=== PATIENT | female | born 1935 | race Caucasian/White ===

== ENCOUNTER 2019-11-28 09:44 | Inpatient (IN) | payer MEDICARE, MEDICAID ==
[~2019-11-28] VITALS: Ht 160 cm; Wt 60.3 kg
--- NOTE | 2019-11-28 09:56 | NUR ---
Task RN: Provided bedside report to DAMI Boyce. All questions answered. DAMI Boyce to assume care of pt at this time.
--- NOTE | 2019-11-28 10:03 | NUR ---
PT BIB EMS FROM [place] TO RULE OUT GASTRITIS AND RENAL FAILURE. PTS BUN WAS "3X HIGHER THAN NORMAL" PT COMPAINED OF DIARHEA AND VOMITTING X 2 DAYS. EKG [place]. PTS VITALS ARE STABLE. BLANKET PROVIDED. 2 IVS HAVE BEEN STARTED
[2019-11-28] MEDS ORDERED: SODIUM CHLORIDE 0.9% 1,000ML IVBOLUS ONE (12:00)
--- NOTE | 2019-11-28 12:10 | NUR ---
PT RESTING IN [facility]. IV FLUIDS INFUSING. VSS.
[2019-11-28 12:25] LABS: BASOPHILS # (AUTO) 0.04 x10^3/uL (0-0.1); BASOPHILS % (AUTO) 1 % (0-1); EOSINOPHILS # (AUTO) 0.25 x10^3/uL (0-0.4); EOSINOPHILS % (AUTO) 3 % (1-7); LYMPHOCYTES # (AUTO) 2.08 x10^3/uL (1-3.4); LYMPHOCYTES % (AUTO) 28 % (22-44); MD NO; MEAN CORPUSCULAR HEMOGLOBIN 27.7 pg (27.0-34.8); MEAN CORPUSCULAR HGB CONC 31.5 g/dL (32.4-35.8); MEAN CORPUSCULAR VOLUME 87.8 fL (80-100); MEAN PLATELET VOLUME 8.3 fL (7.4-10.4); MONOCYTES # (AUTO) 0.53 x10^3/uL (0.2-0.8); MONOCYTES % (AUTO) 7 % (2-9); NEUTROPHILS # (AUTO) 4.65 x10^3/uL (1.8-6.8); NEUTROPHILS % (AUTO) 62 % (42-75); PLATELET COUNT 288 x10^3/uL (130-400); RED CELL DISTRIBUTION WIDTH 14.6 % (9.6-15.2)
[2019-11-28 12:37] LABS: ALBUMIN 2.6 g/dL (3.4-5.0); ANION GAP 10 mmol/L (5-15); CALCIUM 8.2 mg/dL (8.5-10.1); CHLORIDE 121 mmol/L (98-107); CREATININE 5.32 mg/dL (0.55-1.02)
--- NOTE | 2019-11-28 12:44 | NUR ---
[facility]. [phone]
[2019-11-28 13:30] LABS: MICROSCOPIC INDICATED
--- NOTE | 2019-11-28 13:46 | NUR ---
PT AMBULATED TO BATHROOM. STANDBY ASSIST
[2019-11-28] MEDS ORDERED: CEFTRIAXONE PMX 1GM/50ML 50 ML IVPB ONE (15:00)
--- NOTE | 2019-11-28 15:03 | NUR ---
PT TOLD ADMITTING MD THAT SHE THOUGHT WE WERE IN [place] AND SHE HAS NO CLUE WHY SHE IS IN THE HOSPITAL AT THIS TIME
[2019-11-28] MEDS ORDERED: SODIUM CHLORIDE 0.45% 1,000 ML IV SCH (16:00)
[2019-11-28 17:59] VITALS: BP 131/69
[2019-11-28] MEDS ORDERED: ONDANSETRON 2MG/ML, 2ML IVPush PRN (18:00)
[2019-11-28] MEDS ORDERED: LABETALOL 5MG/ML, 20ML IVPush PRN (18:00)
[2019-11-28] MEDS ORDERED: GUAIFENESIN/DM 200-20MG, 10ML UDC PO PRN (18:00)
[2019-11-28] MEDS ORDERED: BUTALB/APAP/CAFFEINE 50MG/325MG/40MG PO PRN ×2 (18:00)
[2019-11-28] MEDS ORDERED: hydrALAzine 20 MG/ML, 1ML IVPush PRN (18:00)
[2019-11-28] MEDS ORDERED: ONDANSETRON ODT 4 MG PO PRN (18:00)
[2019-11-28] MEDS: SODIUM CHLORIDE 0.45% 1,000 ML IV SCH (18:24)
[2019-11-28] MEDS: HEPARIN 5,000 UNITS/ML, 1ML SQ SCH (18:24)
[2019-11-28] MEDS: ACETAMINOPHEN 325 MG TABLET PO PRN (19:30)
[2019-11-28] MEDS: BACLOFEN 10 MG TABLET PO PRN (19:30)
[2019-11-28 21:51] LABS: CREATININE,URINE RANDOM 38.5 mg/dL
[2019-11-28] MEDS ORDERED: CEFTRIAXONE PMX 1GM/50ML 50 ML ONE (22:22)
[2019-11-28 23:33] VITALS: BP 93/49
[2019-11-29] MEDS ORDERED: SACC250C4 PO (01:35)
[2019-11-29] MEDS ORDERED: ASCO-96 PO (01:35)
[2019-11-29] MEDS ORDERED: FESO8TAB PO (01:35)
[2019-11-29] MEDS ORDERED: GABA300C PO (01:35)
[2019-11-29] MEDS ORDERED: CHOL10003 PO (01:35)
[2019-11-29] MEDS ORDERED: OMEP-110 PO (01:35)
[2019-11-29] MEDS ORDERED: LIDO700A20 TD (01:35)
[2019-11-29] MEDS ORDERED: LISI-167 PO (01:35)
[2019-11-29] MEDS ORDERED: FURO20TA3 PO (01:35)
[2019-11-29] MEDS ORDERED: FERR324T5 PO (01:35)
[2019-11-29] MEDS ORDERED: SITA100T PO (01:35)
[2019-11-29] MEDS ORDERED: CLOP75TA52 PO (01:35)
[2019-11-29] MEDS ORDERED: DOCU-131 PO (01:35)
[2019-11-29] MEDS ORDERED: POLY17PO5 PO (01:35)
[2019-11-29] MEDS ORDERED: NA P133E2 RC (02:04)
[2019-11-29] MEDS ORDERED: GABA600T7 PO (02:04)
[2019-11-29] MEDS ORDERED: BISA10SU54 PR (02:04)
[2019-11-29] MEDS ORDERED: ATOR20TA37 PO (02:04)
[2019-11-29] MEDS ORDERED: MAGN400O7 PO (02:04)
[2019-11-29] MEDS ORDERED: NICO4GUM5 PO (02:04)
[2019-11-29] MEDS ORDERED: MIRT15TA3 PO (02:04)
[2019-11-29] MEDS ORDERED: UMEC62.5 INH (02:04)
[2019-11-29] MEDS ORDERED: ACET1TAB64 PO (02:04)
[2019-11-29] MEDS ORDERED: INSU100I28 SC (02:04)
[2019-11-29] MEDS ORDERED: NITR0.6T4 SL (02:04)
[2019-11-29] MEDS: HEPARIN 5,000 UNITS/ML, 1ML SQ SCH ×4 (03:09→17:48)
[2019-11-29 03:12] VITALS: BP 125/72
[2019-11-29 04:23] LABS: BASOPHILS # (AUTO) 0.05 x10^3/uL (0-0.1); BASOPHILS % (AUTO) 1 % (0-1); EOSINOPHILS # (AUTO) 0.32 x10^3/uL (0-0.4); EOSINOPHILS % (AUTO) 5 % (1-7); LYMPHOCYTES # (AUTO) 2.26 x10^3/uL (1-3.4); LYMPHOCYTES % (AUTO) 34 % (22-44); MD NO; MEAN CORPUSCULAR HEMOGLOBIN 28.6 pg (27.0-34.8); MEAN CORPUSCULAR HGB CONC 32.5 g/dL (32.4-35.8); MEAN CORPUSCULAR VOLUME 88.1 fL (80-100); MEAN PLATELET VOLUME 8.6 fL (7.4-10.4); MONOCYTES # (AUTO) 0.48 x10^3/uL (0.2-0.8); MONOCYTES % (AUTO) 7 % (2-9); NEUTROPHILS # (AUTO) 3.55 x10^3/uL (1.8-6.8); NEUTROPHILS % (AUTO) 53 % (42-75); PLATELET COUNT 262 x10^3/uL (130-400); RED BLOOD COUNT 2.93 x10^6/uL (3.82-5.3); RED CELL DISTRIBUTION WIDTH 14.5 % (9.6-15.2)
[2019-11-29 04:35] LABS: ALBUMIN 2.4 g/dL (3.4-5.0); ANION GAP 9 mmol/L (5-15); CALCIUM 8.2 mg/dL (8.5-10.1); CHLORIDE 121 mmol/L (98-107); CREATININE 5.05 mg/dL (0.55-1.02); IRON LEVEL 87 mcg/dL (50-170)
[2019-11-29 04:40] LABS: % IRON SATURATION 39 % (20-55); TOTAL IRON BINDING CAPACITY 223 mcg/dL (250-450)
[2019-11-29 05:31] LABS: ALANINE AMINOTRANSFERASE 15 U/L (12-78)
[2019-11-29 05:32] LABS: ALKALINE PHOSPHATASE 118 U/L (45-117); BILIRUBIN,TOTAL 0.2 mg/dL (0.2-1.0); TOTAL PROTEIN 6.3 g/dL (6.4-8.2)
[2019-11-29 07:39] VITALS: BP 113/63
[2019-11-29] MEDS ORDERED: MAGNESIUM SULFATE PMX 2GM/50ML 50 ML IV ONE (09:00)
[2019-11-29] MEDS: SODIUM CHLORIDE 0.45% 1,000 ML IV SCH ×2 (09:25→20:49)
[2019-11-29] MEDS: SENNA/DOCUSATE TABLET PO SCH (09:26)
[2019-11-29] MEDS: ACETAMINOPHEN 325 MG TABLET PO PRN (09:45)
[2019-11-29 14:20] VITALS: BP 160/81
[2019-11-29 15:59] VITALS: BP 125/63
[2019-11-29 20:10] VITALS: BP 125/73
[2019-11-29] MEDS: BACLOFEN 10 MG TABLET PO PRN (20:48)
[2019-11-29] MEDS: MELATONIN 5 MG TABLET PO PRN (20:48)
[2019-11-29] MEDS: MIRTAZAPINE 15 MG TAB.RAPDIS PO SCH (20:48)
[2019-11-29] MEDS: FLORASTOR 250 MG CAPSULE PO SCH (20:48)
[2019-11-29] MEDS: GABAPENTIN 300 MG CAPSULE PO PRN (20:48)
[2019-11-30 01:32] VITALS: BP 129/71
[2019-11-30] MEDS: HEPARIN 5,000 UNITS/ML, 1ML SQ SCH ×3 (02:00→17:49)
[2019-11-30 06:16] LABS: ALBUMIN 2.4 g/dL (3.4-5.0); ANION GAP 9 mmol/L (5-15); CALCIUM 8.4 mg/dL (8.5-10.1); CHLORIDE 120 mmol/L (98-107)
[2019-11-30 06:18] LABS: BASOPHILS # (AUTO) 0.05 x10^3/uL (0-0.1); BASOPHILS % (AUTO) 1 % (0-1); CREATININE 4.22 mg/dL (0.55-1.02); EOSINOPHILS # (AUTO) 0.16 x10^3/uL (0-0.4); EOSINOPHILS % (AUTO) 3 % (1-7); LYMPHOCYTES # (AUTO) 1.63 x10^3/uL (1-3.4); LYMPHOCYTES % (AUTO) 29 % (22-44); MD NO; MEAN CORPUSCULAR HEMOGLOBIN 28.8 pg (27.0-34.8); MEAN CORPUSCULAR HGB CONC 33.1 g/dL (32.4-35.8); MEAN PLATELET VOLUME 8.6 fL (7.4-10.4); MONOCYTES # (AUTO) 0.33 x10^3/uL (0.2-0.8); MONOCYTES % (AUTO) 6 % (2-9); NEUTROPHILS # (AUTO) 3.46 x10^3/uL (1.8-6.8); NEUTROPHILS % (AUTO) 62 % (42-75); PLATELET COUNT 248 x10^3/uL (130-400); RED BLOOD COUNT 2.91 x10^6/uL (3.82-5.3); RED CELL DISTRIBUTION WIDTH 14.6 % (9.6-15.2)
[2019-11-30 07:48] VITALS: BP 119/73
[2019-11-30] MEDS: FERROUS SULFATE 325 MG TABLET PO SCH (08:37)
[2019-11-30] MEDS: CLOPIDOGREL 75 MG TABLET PO SCH (08:37)
[2019-11-30] MEDS: FLORASTOR 250 MG CAPSULE PO SCH ×2 (08:37→20:51)
[2019-11-30] MEDS: CHOLECALCIFEROL 1,000 UNIT TABLET PO SCH (08:37)
[2019-11-30] MEDS: FUROSEMIDE 20 MG TABLET PO SCH (08:38)
[2019-11-30] MEDS: SENNA/DOCUSATE TABLET PO SCH (08:40)
[2019-11-30] MEDS: LISINOPRIL 10 MG TABLET PO SCH (08:41)
[2019-11-30] MEDS: NICOTINE 21 MG/24 HR PATCH.TD24 TD SCH ×2 (08:46→08:47)
[2019-11-30] MEDS: INSULIN GLARGINE 100 UNITS/ML, PEN SQ-INSULIN SCH (09:00)
[2019-11-30] MEDS: LACTATED RINGERS 1,000 ML IV SCH (10:33)
[2019-11-30 13:52] VITALS: BP 123/66
[2019-11-30 19:53] VITALS: BP 118/64
[2019-11-30] MEDS: BACLOFEN 10 MG TABLET PO PRN (20:52)
[2019-11-30] MEDS: GABAPENTIN 300 MG CAPSULE PO PRN (20:52)
[2019-11-30] MEDS: MELATONIN 5 MG TABLET PO PRN (20:52)
[2019-11-30] MEDS: ACETAMINOPHEN 325 MG TABLET PO PRN (20:52)
[2019-11-30] MEDS: MIRTAZAPINE 15 MG TAB.RAPDIS PO SCH (21:00)
[2019-12-01 01:34] VITALS: BP 110/58
[2019-12-01] MEDS: ACETAMINOPHEN 325 MG TABLET PO PRN (05:31)
[2019-12-01] MEDS: BACLOFEN 10 MG TABLET PO PRN (05:31)
[2019-12-01] MEDS: HEPARIN 5,000 UNITS/ML, 1ML SQ SCH ×3 (05:31→21:00)
[2019-12-01 05:49] LABS: CHLORIDE 119 mmol/L (98-107)
[2019-12-01 05:53] LABS: ALBUMIN 2.7 g/dL (3.4-5.0); ANION GAP 9 mmol/L (5-15); CALCIUM 8.9 mg/dL (8.5-10.1); CREATININE 3.89 mg/dL (0.55-1.02)
[2019-12-01 08:50] VITALS: BP 172/60
[2019-12-01] MEDS ORDERED: SULF1TAB23 PO (09:07)
[2019-12-01] MEDS: FLORASTOR 250 MG CAPSULE PO SCH ×2 (09:23→21:00)
[2019-12-01] MEDS: LISINOPRIL 10 MG TABLET PO SCH (09:23)
[2019-12-01] MEDS: CLOPIDOGREL 75 MG TABLET PO SCH (09:24)
[2019-12-01] MEDS: FUROSEMIDE 20 MG TABLET PO SCH (09:24)
[2019-12-01] MEDS: CHOLECALCIFEROL 1,000 UNIT TABLET PO SCH (09:24)
[2019-12-01] MEDS: SENNA/DOCUSATE TABLET PO SCH (09:24)
[2019-12-01] MEDS: INSULIN GLARGINE 100 UNITS/ML, PEN SQ-INSULIN SCH (09:24)
[2019-12-01] MEDS: FERROUS SULFATE 325 MG TABLET PO SCH (09:24)
[2019-12-01] MEDS: NICOTINE 21 MG/24 HR PATCH.TD24 TD SCH (09:37)
[2019-12-01] MEDS: LACTATED RINGERS 1,000 ML IV SCH (10:30)
[2019-12-01 11:10] VITALS: BP 181/75
[2019-12-01 11:52] VITALS: BP 168/80
[2019-12-01 12:54] VITALS: BP 138/83
[2019-12-01 19:32] VITALS: BP 158/70
[2019-12-01] MEDS: SULFAMETH./TRIMETHOPRIM SS 400MG/80MG TABLET PO SCH (21:00)
[2019-12-01] MEDS: MIRTAZAPINE 15 MG TAB.RAPDIS PO SCH (21:00)
[2019-12-02 01:41] VITALS: BP 146/78
[2019-12-02] MEDS: HEPARIN 5,000 UNITS/ML, 1ML SQ SCH ×3 (05:00→20:58)
[2019-12-02 08:44] VITALS: BP 154/87
[2019-12-02] MEDS: FLORASTOR 250 MG CAPSULE PO SCH ×2 (09:00→20:57)
[2019-12-02] MEDS: CLOPIDOGREL 75 MG TABLET PO SCH ×2 (09:00→09:23)
[2019-12-02] MEDS: LISINOPRIL 10 MG TABLET PO SCH ×2 (09:00→10:56)
[2019-12-02] MEDS: FUROSEMIDE 20 MG TABLET PO SCH (09:00)
[2019-12-02] MEDS: SULFAMETH./TRIMETHOPRIM SS 400MG/80MG TABLET PO SCH ×2 (09:00→20:57)
[2019-12-02] MEDS: FERROUS SULFATE 325 MG TABLET PO SCH (09:00)
[2019-12-02] MEDS: CHOLECALCIFEROL 1,000 UNIT TABLET PO SCH (09:00)
[2019-12-02] MEDS: ACETAMINOPHEN 325 MG TABLET PO PRN ×3 (09:19→18:35)
[2019-12-02] MEDS: INSULIN GLARGINE 100 UNITS/ML, PEN SQ-INSULIN SCH (09:30)
[2019-12-02] MEDS: NICOTINE 21 MG/24 HR PATCH.TD24 TD SCH (09:31)
[2019-12-02 09:54] LABS: ANION GAP 9 mmol/L (5-15); CHLORIDE 121 mmol/L (98-107); CREATININE 3.16 mg/dL (0.55-1.02)
[2019-12-02] MEDS: SENNA/DOCUSATE TABLET PO SCH (10:56)
[2019-12-02] MEDS: LACTATED RINGERS 1,000 ML IV SCH (11:01)
[2019-12-02 14:19] LABS: FREE T4 (FREE THYROXINE) 1.03 ng/dL (0.76-1.46)
[2019-12-02 14:20] VITALS: BP 129/63
[2019-12-02 20:45] VITALS: BP 153/73
[2019-12-03 02:28] VITALS: BP 110/69
[2019-12-03] MEDS: ACETAMINOPHEN 325 MG TABLET PO PRN ×3 (02:50→18:41)
[2019-12-03] MEDS: HEPARIN 5,000 UNITS/ML, 1ML SQ SCH ×3 (05:20→20:42)
[2019-12-03 06:05] LABS: BASOPHILS # (AUTO) 0.05 x10^3/uL (0-0.1); BASOPHILS % (AUTO) 1 % (0-1); EOSINOPHILS # (AUTO) 0.32 x10^3/uL (0-0.4); EOSINOPHILS % (AUTO) 3 % (1-7); LYMPHOCYTES # (AUTO) 2.87 x10^3/uL (1-3.4); LYMPHOCYTES % (AUTO) 30 % (22-44); MD NO; MEAN CORPUSCULAR HEMOGLOBIN 28.3 pg (27.0-34.8); MEAN CORPUSCULAR HGB CONC 32.6 g/dL (32.4-35.8); MEAN CORPUSCULAR VOLUME 86.9 fL (80-100); MONOCYTES # (AUTO) 0.72 x10^3/uL (0.2-0.8); MONOCYTES % (AUTO) 7 % (2-9); NEUTROPHILS # (AUTO) 5.77 x10^3/uL (1.8-6.8); NEUTROPHILS % (AUTO) 59 % (42-75); PLATELET COUNT 294 x10^3/uL (130-400); RED BLOOD COUNT 3.47 x10^6/uL (3.82-5.3); RED CELL DISTRIBUTION WIDTH 14.1 % (9.6-15.2)
[2019-12-03 06:12] LABS: ALBUMIN 2.7 g/dL (3.4-5.0); ANION GAP 6 mmol/L (5-15); CALCIUM 8.5 mg/dL (8.5-10.1); CHLORIDE 121 mmol/L (98-107); CREATININE 2.85 mg/dL (0.55-1.02)
[2019-12-03 07:42] VITALS: BP 112/69
[2019-12-03] MEDS ORDERED: PHARMACY MAY ADJ FOR RENAL FX MC PRN (08:00)
[2019-12-03] MEDS: FERROUS SULFATE 325 MG TABLET PO SCH (08:55)
[2019-12-03] MEDS: CEPHALEXIN 500 MG CAPSULE PO SCH ×2 (08:55→20:42)
[2019-12-03] MEDS: FUROSEMIDE 20 MG TABLET PO SCH (08:55)
[2019-12-03] MEDS: FLORASTOR 250 MG CAPSULE PO SCH ×2 (08:55→20:42)
[2019-12-03] MEDS: CLOPIDOGREL 75 MG TABLET PO SCH (08:55)
[2019-12-03] MEDS: NICOTINE 21 MG/24 HR PATCH.TD24 TD SCH (08:56)
[2019-12-03] MEDS: CHOLECALCIFEROL 1,000 UNIT TABLET PO SCH (08:56)
[2019-12-03] MEDS: LISINOPRIL 10 MG TABLET PO SCH (08:56)
[2019-12-03] MEDS: INSULIN GLARGINE 100 UNITS/ML, PEN SQ-INSULIN SCH (08:57)
[2019-12-03] MEDS: SENNA/DOCUSATE TABLET PO SCH (08:59)
[2019-12-03 12:06] VITALS: BP 103/69
[2019-12-03 19:19] VITALS: BP 108/62
[2019-12-04] MEDS: ACETAMINOPHEN 325 MG TABLET PO PRN (01:56)
[2019-12-04 02:00] VITALS: BP 101/60
[2019-12-04] MEDS: LACTATED RINGERS 1,000 ML IV SCH ×2 (03:45→04:00)
[2019-12-04] MEDS: HEPARIN 5,000 UNITS/ML, 1ML SQ SCH ×3 (04:48→20:50)
[2019-12-04 06:48] LABS: BASOPHILS # (AUTO) 0.03 x10^3/uL (0-0.1); BASOPHILS % (AUTO) 0 % (0-1); EOSINOPHILS # (AUTO) 0.39 x10^3/uL (0-0.4); EOSINOPHILS % (AUTO) 4 % (1-7); LYMPHOCYTES # (AUTO) 2.87 x10^3/uL (1-3.4); LYMPHOCYTES % (AUTO) 28 % (22-44); MD NO; MEAN CORPUSCULAR HEMOGLOBIN 28.3 pg (27.0-34.8); MEAN CORPUSCULAR HGB CONC 32.4 g/dL (32.4-35.8); MEAN CORPUSCULAR VOLUME 87.2 fL (80-100); MONOCYTES # (AUTO) 0.72 x10^3/uL (0.2-0.8); MONOCYTES % (AUTO) 7 % (2-9); NEUTROPHILS # (AUTO) 6.24 x10^3/uL (1.8-6.8); NEUTROPHILS % (AUTO) 61 % (42-75); PLATELET COUNT 273 x10^3/uL (130-400); RED BLOOD COUNT 3.31 x10^6/uL (3.82-5.3); RED CELL DISTRIBUTION WIDTH 14.6 % (9.6-15.2)
[2019-12-04 06:53] LABS: ANION GAP 7 mmol/L (5-15); CALCIUM 8.5 mg/dL (8.5-10.1); CHLORIDE 116 mmol/L (98-107); CREATININE 3.02 mg/dL (0.55-1.02)
[2019-12-04 07:53] VITALS: BP 117/65
[2019-12-04] MEDS: SENNA/DOCUSATE TABLET PO SCH (09:00)
[2019-12-04] MEDS ORDERED: LACTATED RINGERS 500 ML IVBOLUS ONE (10:00)
[2019-12-04] MEDS: FLORASTOR 250 MG CAPSULE PO SCH ×2 (11:21→20:50)
[2019-12-04] MEDS: CHOLECALCIFEROL 1,000 UNIT TABLET PO SCH (11:22)
[2019-12-04] MEDS: CLOPIDOGREL 75 MG TABLET PO SCH (11:22)
[2019-12-04] MEDS: NICOTINE 21 MG/24 HR PATCH.TD24 TD SCH (11:22)
[2019-12-04] MEDS: CEPHALEXIN 500 MG CAPSULE PO SCH ×2 (11:22→20:50)
[2019-12-04] MEDS: FERROUS SULFATE 325 MG TABLET PO SCH (11:22)
[2019-12-04] MEDS: INSULIN GLARGINE 100 UNITS/ML, PEN SQ-INSULIN SCH (11:36)
[2019-12-04 15:02] VITALS: BP 121/71
[2019-12-04 18:46] VITALS: BP 158/65
[2019-12-05 01:01] VITALS: BP 133/65
[2019-12-05] MEDS ORDERED: HALOPERIDOL 5 MG/ML ONE (01:41)
[2019-12-05] MEDS ORDERED: HALOPERIDOL 5 MG/ML IM ONE (02:00)
[2019-12-05 04:51] LABS: ANION GAP 7 mmol/L (5-15); CALCIUM 8.8 mg/dL (8.5-10.1); CHLORIDE 120 mmol/L (98-107); CREATININE 2.65 mg/dL (0.55-1.02)
[2019-12-05] MEDS: HEPARIN 5,000 UNITS/ML, 1ML SQ SCH ×3 (05:11→20:27)
[2019-12-05 08:40] VITALS: BP 113/67
[2019-12-05] MEDS: NICOTINE 21 MG/24 HR PATCH.TD24 TD SCH (09:00)
[2019-12-05] MEDS: SENNA/DOCUSATE TABLET PO SCH (09:00)
[2019-12-05] MEDS: CEPHALEXIN 500 MG CAPSULE PO SCH ×2 (09:06→20:27)
[2019-12-05] MEDS: CHOLECALCIFEROL 1,000 UNIT TABLET PO SCH (09:06)
[2019-12-05] MEDS: FLORASTOR 250 MG CAPSULE PO SCH ×2 (09:06→20:27)
[2019-12-05] MEDS: FERROUS SULFATE 325 MG TABLET PO SCH (09:06)
[2019-12-05] MEDS: CLOPIDOGREL 75 MG TABLET PO SCH (09:06)
[2019-12-05] MEDS: SODIUM BICARBONATE 650 MG TABLET PO SCH ×2 (09:06→20:27)
[2019-12-05] MEDS: INSULIN GLARGINE 100 UNITS/ML, PEN SQ-INSULIN SCH (09:07)
[2019-12-05] MEDS ORDERED: SODI650T PO (12:31)
[2019-12-05] MEDS ORDERED: CEPH-376 PO (12:31)
[2019-12-05 16:05] VITALS: BP 125/66
[2019-12-05] MEDS: LACTATED RINGERS 1,000 ML IV SCH (17:36)
[2019-12-05 18:55] VITALS: BP 114/69
[2019-12-06 00:04] VITALS: BP 156/72
[2019-12-06] MEDS: HEPARIN 5,000 UNITS/ML, 1ML SQ SCH (05:15)
[2019-12-06 06:18] LABS: ANION GAP 8 mmol/L (5-15); CALCIUM 8.6 mg/dL (8.5-10.1); CHLORIDE 117 mmol/L (98-107); CREATININE 2.44 mg/dL (0.55-1.02)
[2019-12-06 06:57] VITALS: BP 135/67
[2019-12-06] MEDS: SODIUM BICARBONATE 650 MG TABLET PO SCH (08:43)
[2019-12-06] MEDS: CLOPIDOGREL 75 MG TABLET PO SCH (08:43)
[2019-12-06] MEDS: CEPHALEXIN 500 MG CAPSULE PO SCH (08:43)
[2019-12-06] MEDS: CHOLECALCIFEROL 1,000 UNIT TABLET PO SCH (08:43)
[2019-12-06] MEDS: FERROUS SULFATE 325 MG TABLET PO SCH (08:44)
[2019-12-06] MEDS: SENNA/DOCUSATE TABLET PO SCH (08:44)
[2019-12-06] MEDS: NICOTINE 21 MG/24 HR PATCH.TD24 TD SCH (08:44)
[2019-12-06] MEDS: INSULIN GLARGINE 100 UNITS/ML, PEN SQ-INSULIN SCH (08:44)
== END 2019-12-06 10:00 | DRG 682 ==
LOC: ED 12:08 → EDIP 14:01 → 4WST 17:28
PROVIDERS: ADMIT Family Medicine; ATTEND Internal Medicine
DX: N17.9 Acute kidney failure, unspecified (principal); G93.41 Metabolic encephalopathy; N39.0 Urinary tract infection, site not specified; E87.0 Hyperosmolality and hypernatremia; E87.2 Acidosis; F05 Delirium due to known physiological condition; K52.9 Noninfective gastroenteritis and colitis, unspecified; I12.9 Hypertensive chronic kidney disease with stage 1 through stage 4 chronic kidney disease, or unspecified chronic kidney disease; E87.5 Hyperkalemia; D64.9 Anemia, unspecified; E11.9 Type 2 diabetes mellitus without complications; N18.9 Chronic kidney disease, unspecified; E11.22 Type 2 diabetes mellitus with diabetic chronic kidney disease; J44.9 Chronic obstructive pulmonary disease, unspecified; E88.09 Other disorders of plasma-protein metabolism, not elsewhere classified; B96.20 Unspecified Escherichia coli [E. coli] as the cause of diseases classified elsewhere; E86.0 Dehydration; F02.80 Dementia in other diseases classified elsewhere, unspecified severity, without behavioral disturbance, psychotic disturbance, mood disturbance, and anxiety; F17.210 Nicotine dependence, cigarettes, uncomplicated; Z66 Do not resuscitate; G30.9 Alzheimer's disease, unspecified; I95.9 Hypotension, unspecified; N32.81 Overactive bladder; Z79.02 Long term (current) use of antithrombotics/antiplatelets; Z79.4 Long term (current) use of insulin; Z79.899 Other long term (current) drug therapy; Z90.710 Acquired absence of both cervix and uterus; Z20.828 Contact with and (suspected) exposure to other viral communicable diseases
CPT/HCPCS: 36415; 70551; 76770; 80048; 80069; 81001; 82040; 82140; 82247; 82306; 82570; 82728; 82962; 83540; 83550; 83605; 83735; 83970; 84075; 84155; 84156; 84439; 84443; 84450; 84460; 84481; 84550; 85025; 87040; 87077; 87086; 87186; 87635; 93005; 96365; 96366; 99285; G0378; J0696; J1644; J2405; J0360; J1630; J1815; J3475; J7030; J7120

== ENCOUNTER 2020-06-14 10:54 | Day surgery (SDC) | payer MEDICARE, MEDICAID ==
[~2020-06-14] VITALS: Ht 160 cm; Wt 64.5 kg
[~2020-06-14 10:54] MED LIST: ACET1TAB64 PO; ASCO-96 PO; ATOR20TA37 PO; BISA10SU54 PR; CEPH-376 PO; CHOL10003 PO; CLOP75TA52 PO; DOCU-131 PO; FERR324T5 PO; FESO8TAB PO; FURO20TA3 PO; GABA300C PO; GABA600T7 PO; INSU100I28 SC; LIDO700A20 TD; LISI-167 PO; MAGN400O7 PO; MIRT15TA3 PO; NA P133E2 RC; NICO4GUM5 PO; NITR0.6T4 SL; OMEP-110 PO; POLY17PO5 PO; SACC250C4 PO; SITA100T PO; SODI650T PO; SULF1TAB23 PO; UMEC62.5 INH
[2020-06-14] MEDS ORDERED: CHLORHEXIDINE 15 ML UDC MM STA (11:02)
[2020-06-14] MEDS ORDERED: CHLORHEXIDINE 15 ML UDC ONE (11:11)
[2020-06-14] MEDS ORDERED: FENTANYL PF 250 MCG/5ML ONE (11:12)
[2020-06-14] MEDS ORDERED: ONDANSETRON 2MG/ML, 2ML ONE (11:15)
[2020-06-14] MEDS ORDERED: GLYCOPYRROLATE 0.2MG/1ML, 5ML ONE (11:15)
[2020-06-14] MEDS ORDERED: ROCURONIUM 10MG/ML,5ML ONE (11:15)
[2020-06-14] MEDS ORDERED: NEOSTIGMINE 1 MG/ML, 10ML ONE (11:15)
[2020-06-14] MEDS ORDERED: CEFAZOLIN 1,000 MG ONE (11:15)
[2020-06-14] MEDS ORDERED: DEXAMETHASONE 4 MG/ML, 1ML ONE (11:15)
[2020-06-14] MEDS ORDERED: PROPOFOL 10 MG/ML, 20ML ONE (11:15)
[2020-06-14] MEDS ORDERED: PLEASE ENTER HEIGHT AND WEIGHT MC SCH (11:30)
[2020-06-14] MEDS ORDERED: LACTATED RINGERS 1,000 ML IV SCH (11:30)
[2020-06-14 11:31] VITALS: BP 123/60
[2020-06-14] MEDS ORDERED: ATOR20TA37 PO (11:53)
[2020-06-14] MEDS ORDERED: GABA300C PO (11:53)
[2020-06-14] MEDS ORDERED: POLY17PO5 PO (11:53)
[2020-06-14] MEDS ORDERED: LIDO1ADH68 TD (11:53)
[2020-06-14] MEDS ORDERED: CHOL10003 PO (11:53)
[2020-06-14] MEDS ORDERED: OMEP-110 PO (11:53)
[2020-06-14] MEDS ORDERED: DOCU-131 PO (11:53)
[2020-06-14] MEDS ORDERED: GABA100C PO (11:53)
[2020-06-14] MEDS ORDERED: OXYB5TAB10 PO (11:53)
[2020-06-14] MEDS ORDERED: SULF1TAB24 PO (11:53)
[2020-06-14] MEDS ORDERED: SITA100T PO (11:53)
[2020-06-14] MEDS ORDERED: INSU100V13 SQ (11:53)
[2020-06-14] MEDS ORDERED: AMLO2.5T5 PO (11:53)
[2020-06-14] MEDS ORDERED: CLOP75TA52 PO (11:53)
[2020-06-14] MEDS ORDERED: MIRT-38 PO (11:53)
[2020-06-14] MEDS ORDERED: SUGAMMADEX 200 MG/2 ML IVPush ONE (12:29)
[2020-06-14] MEDS ORDERED: HALOPERIDOL 5 MG/ML IV PRN (12:30)
[2020-06-14] MEDS ORDERED: HYDROmorphone 1 MG/ML, 1ML INJ IVPush PRN (12:30)
[2020-06-14] MEDS ORDERED: LABETALOL 5MG/ML, 20ML IV PRN (12:30)
[2020-06-14] MEDS ORDERED: hydrALAzine 20 MG/ML, 1ML IV PRN (12:30)
[2020-06-14] MEDS ORDERED: FENTANYL PF 100 MCG/2ML IV PRN (12:30)
[2020-06-14] MEDS ORDERED: morphine SULFATE 10 MG/ML, 1ML IVPush PRN (12:30)
[2020-06-14] MEDS ORDERED: PROMETHAZINE 25 MG/ML, 1ML IVPush PRN (12:30)
[2020-06-14] MEDS ORDERED: MEPERIDINE/PF 25MG/0.5ML IVPush PRN (12:30)
[2020-06-14] MEDS ORDERED: OXYcodone 5 MG/5 ML ORAL.SOL UDC PO PRN (12:30)
[2020-06-14] MEDS ORDERED: FLUCONAZOLE 200 MG/100 ML 100 ML IV ONE (13:30)
== END 2020-06-14 17:20 | disposition home or self-care (01) ==
LOC: EDBD → OUT 10:54
PROVIDERS: ATTEND Student in an Organized Health Care Education/Training Program
DX: N20.1 Calculus of ureter (principal); I12.9 Hypertensive chronic kidney disease with stage 1 through stage 4 chronic kidney disease, or unspecified chronic kidney disease; E11.22 Type 2 diabetes mellitus with diabetic chronic kidney disease; E78.5 Hyperlipidemia, unspecified; K21.9 Gastro-esophageal reflux disease without esophagitis; N18.9 Chronic kidney disease, unspecified; F03.90 Unspecified dementia, unspecified severity, without behavioral disturbance, psychotic disturbance, mood disturbance, and anxiety; J44.9 Chronic obstructive pulmonary disease, unspecified; Z79.01 Long term (current) use of anticoagulants; Z79.899 Other long term (current) drug therapy
CPT/HCPCS: 52356; 74018; 82360; 82962; 88300; 93005; C1758; C1769; C2617; J0690; J1450; J2405; J2704; J3010; J7120; 76000; J1100; J2710